=== PATIENT | female | born 1995 | race American Indian/Alaskan Native ===

== ENCOUNTER 2019-03-04 20:58 | Emergency (ER) | payer SELFPAY ==
[2019-03-04 21:10] VITALS: BP 157/101
[2019-03-04 22:52] LABS: Basophils # (Auto) 0.1 K/mm3 (0.0-0.1); Basophils % (Auto) 0.4 % (0.0-1.8); Hematocrit 48.1 % (30.3-42.9); Hemoglobin 16.6 gm/dl (10.1-14.3); Lymphocytes # (Auto) 2.4 K/mm3 (1.2-5.4); Lymphocytes % (Auto) 15.5 % (13.4-35.0); Mean Corpuscular HGB Conc 35 % (30-34); Mean Corpuscular Volume 97 fl (79-97); Monocytes # (Auto) 0.9 K/mm3 (0.0-0.8); Monocytes % (Auto) 6.2 % (0.0-7.3); Platelet Count 353 K/mm3 (140-440); Red Blood Count 4.96 M/mm3 (3.65-5.03); Red Cell Distribution Width 12.9 % (13.2-15.2)
[2019-03-04 22:53] LABS: Alanine Aminotransferase 21 units/L (7-56); Albumin 5.3 g/dL (3.9-5); BUN/Creatinine Ratio 16; Blood Urea Nitrogen 13 mg/dL (7-17); Calcium 10.3 mg/dL (8.4-10.2); Hemolysis Index 5
[2019-03-04] MEDS ORDERED: KETOROLAC 30 MG/1 ML INJ IV ONE (22:59)
[2019-03-04] MEDS ORDERED: ONDANSETRON 4 MG/2 ML INJ IV ONE (22:59)
[2019-03-04] MEDS ORDERED: SODIUM CHLORIDE 0.9% 1000 ML 1,000 ML IV ONE ×2 (22:59→23:03)
[2019-03-04] MEDS ORDERED: MORPHINE 4 MG/1 ML INJ IV ONE (23:02)
[2019-03-04] MEDS ORDERED: D5W/0.9% NACL 1,000 ML IV SCH (23:45)
--- NOTE | 2019-03-04 23:58 | Emergency Department Report ---
ED Abdominal Pain HPI - General Chief Complaint: Abdominal Pain Stated Complaint: ABD PAIN/NAUSEA/EMESIS Time Seen by Provider: 03/04/19 22:57 Source: patient Mode of arrival: Ambulatory Limitations: No Limitations - History of Present Illness Initial Comments: Ms. Preston is a 26 y/o aaf with or GERD , and Gastro pereis, who presents for n/v and abd pain aching burning. 5/10 generalized. pt states hx of frequent exacerbations. pt denies fever or chills, but unable to toerate po intake for past 3 days. State usual tx is zofran and morphine with ivfs,. MD Complaint: abdominal pain -: days(s) Location: LLQ, RLQ Radiation: none Migration to: LLQ, RLQ Severity: moderate Severity scale (0 -10): 7 Quality: aching, burning Consistency: intermittent Improves With: nothing Worsens With: eating Associated Symptoms: nausea, vomiting. denies: chills - Related Data LMP Date: 02/03/19 Previous Rx's Medication Instructions Recorded Last Taken Type Dicyclomine [Bentyl] 10 mg PO QID PRN #30 capsule 03/05/19 Unknown Rx Famotidine [Pepcid] 20 mg PO BID #30 tablet 03/05/19 Unknown Rx Naproxen 500 mg PO BID PRN #30 tablet 03/05/19 Unknown Rx Ondansetron [Zofran Odt] 4 mg PO Q8HR PRN #12 tab.rapdis 03/05/19 Unknown Rx Allergies Allergy/AdvReac Type Severity Reaction Status Date / Time peanut Allergy Anaphylaxis Verified 03/04/19 21:56 ED Review of Systems ROS: Stated complaint: ABD PAIN/NAUSEA/EMESIS Other details as noted in HPI Constitutional: denies: chills, fever Eyes: denies: eye pain, eye discharge, vision change ENT: denies: ear pain, throat pain Respiratory: denies: cough, shortness of breath, wheezing Cardiovascular: denies: chest pain, palpitations Endocrine: no symptoms reported Gastrointestinal: abdominal pain, nausea, vomiting. denies: diarrhea, constipation, melena Genitourinary: denies: urgency, dysuria, discharge Musculoskeletal: denies: back pain, joint swelling, arthralgia Skin: denies: rash, lesions Neurological: denies: headache, weakness, paresthesias Psychiatric: denies: anxiety, depression Hematological/Lymphatic: denies: easy bleeding, easy bruising ED Past Medical Hx - Past Medical History Previous Medical History?: No - Surgical History Past Surgical History?: No - Social History Smoking Status: Never Smoker Substance Use Type: Marijuana - Medications Home Medications: Home Medications Medication Instructions Recorded Confirmed Last Taken Type Dicyclomine [Bentyl] 10 mg PO QID PRN #30 capsule 03/05/19 Unknown Rx Famotidine [Pepcid] 20 mg PO BID #30 tablet 03/05/19 Unknown Rx Naproxen 500 mg PO BID PRN #30 tablet 03/05/19 Unknown Rx Ondansetron [Zofran Odt] 4 mg PO Q8HR PRN #12 tab.rapdis 03/05/19 Unknown Rx ED Physical Exam - General Limitations: No Limitations General appearance: alert, in no apparent distress - Head Head exam: Present: atraumatic, normocephalic - Eye Eye exam: Present: normal appearance, PERRL, EOMI Pupils: Present: normal accommodation - ENT ENT exam: Present: normal orophraynx, mucous membranes moist - Neck Neck exam: Present: normal inspection, full ROM. Absent: tenderness - Respiratory Respiratory exam: Present: normal lung sounds bilaterally. Absent: respiratory distress, wheezes, stridor, chest wall tenderness - Cardiovascular Cardiovascular Exam: Present: regular rate, normal rhythm, normal heart sounds. Absent: systolic murmur, diastolic murmur, rubs, gallop - GI/Abdominal GI/Abdominal exam: Present: soft, normal bowel sounds. Absent: distended, tend erness, guarding, rebound, rigid, bruit, hernia - Rectal Rectal exam: Present: deferred - Extremities Exam Extremities exam: Present: normal inspection, full ROM, normal capillary refill. Absent: tenderness - Back Exam Back exam: Present: normal inspection, full ROM. Absent: tenderness, CVA tenderness (R), CVA tenderness (L), muscle spasm, vertebral tenderness, rash noted - Neurological Exam Neurological exam: Present: alert, oriented X3, CN II-XII intact, normal gait - Psychiatric Psychiatric exam: Present: normal affect, normal mood - Skin Skin exam: Present: warm, dry, intact, normal color. Absent: rash ED Course Vital Signs 03/04/19 03/04/19 21:09 23:21 Temperature 98.2 F Pulse Rate 104 H Respiratory 20 18 Rate Blood Pressure 157/101 O2 Sat by Pulse 98 Oximetry ED Medical Decision Making - Lab Data Result diagrams: 03/04/19 22:20 03/04/19 22:20 Labs 03/04/19 03/04/19 03/04/19 22:20 22:20 22:20 WBC 15.2 H RBC 4.96 Hgb 16.6 H Hct 48.1 H MCV 97 MCH 33 H MCHC 35 H RDW 12.9 L Plt Count 353 Lymph % (Auto) 15.5 [place] % (Auto) 6.2 Eos % (Auto) 0.0 Baso % (Auto) 0.4 Lymph # 2.4 [place] # 0.9 H Eos # 0.0 Baso # 0.1 Seg Neutrophils % 77.9 H Seg Neutrophils # 11.8 H Sodium 137 Potassium 3.2 L Chloride 98.3 Carbon Dioxide 20 L Anion Gap 22 BUN 13 Creatinine 0.8 Estimated GFR > 60 BUN/Creatinine Ratio 16 Glucose 130 H Calcium 10.3 H Total Bilirubin 0.90 AST 33 ALT 21 Alkaline Phosphatase 80 Total Protein 9.3 H Albumin 5.3 H Albumin/Globulin Ratio 1.3 Lipase 14 HCG, Qual Negative - Medical Decision Making pt now refuses ua or CT scan stating "I know what is wrong with me this is a chronic problem. [place] [facility] Checked will not rx narcotics, states all symptoms are resolve, pt eat entire evening meal and liquids without n/v, labs support , n/v, dehydration. pt vital signs improved there is no pain, plan: sin out ama. pt is currently a/o x 3 ambulatory with steady gait and demonstrates sound decision making capacity. to home, follow up with GI, rx: bentyl, zofran, Naproxen, follow up with [facility] in 1-2 days, Critical care attestation.: If time is entered above; I have spent that time in minutes in the direct care of this critically ill patient, excluding procedure time. ED Disposition Clinical Impression: Mild dehydration Nausea and vomiting Qualifiers: Vomiting type: unspecified Vomiting Intractability: non-intractable Qualified Code(s): R11.2 - Nausea with vomiting, unspecified Disposition: LEFT AGAINST MED ADVICE Is pt being admited?: No Does the pt Need Aspirin: No Condition: Undetermined Instructions: Abdominal Pain (ED), Acute Nausea and Vomiting (ED), Dehydration (ED) Prescriptions: Dicyclomine [Bentyl] 10 mg PO QID PRN #30 capsule PRN Reason: abdominal spasm Naproxen 500 mg PO BID PRN #30 tablet PRN Reason: pain Famotidine [Pepcid] 20 mg PO BID #30 tablet Ondansetron [Zofran Odt] 4 mg PO Q8HR PRN #12 tab.rapdis PRN Reason: Nausea And Vomiting Referrals: [facility] [Provider Group] - 2-3 Days Forms: AMA Form Time of Disposition: 01:11
== END 2019-03-05 01:15 | disposition left against medical advice (07) ==
LOC: ED 20:58
DX: E86.0 Dehydration (principal); R10.32 Left lower quadrant pain; R10.31 Right lower quadrant pain; F12.10 Cannabis abuse, uncomplicated; Z91.010 Allergy to peanuts
CPT/HCPCS: 36415; 80053; 83690; 84703; 85025; 96361; 96374; 96375; 99283; J2270; J2405; J7030

== ENCOUNTER 2020-01-09 12:44 | Emergency (ER) | payer SELFPAY ==
[2020-01-09 12:53] VITALS: BP 179/107
[2020-01-09 13:30] LABS: Basophils # (Auto) 0.1 K/mm3 (0.0-0.1); Basophils % (Auto) 0.4 % (0.0-1.8); Hematocrit 44.8 % (30.3-42.9); Hemoglobin 14.9 gm/dl (10.1-14.3); Lymphocytes # (Auto) 1.1 K/mm3 (1.2-5.4); Lymphocytes % (Auto) 8.3 % (13.4-35.0); Mean Corpuscular HGB Conc 33 % (30-34); Mean Corpuscular Volume 97 fl (79-97); Monocytes # (Auto) 0.4 K/mm3 (0.0-0.8); Monocytes % (Auto) 2.7 % (0.0-7.3); Platelet Count 316 K/mm3 (140-440); Red Blood Count 4.64 M/mm3 (3.65-5.03); Red Cell Distribution Width 13.3 % (13.2-15.2)
[2020-01-09 13:47] LABS: Alanine Aminotransferase 22 units/L (7-56); Albumin 4.9 g/dL (3.9-5); Blood Urea Nitrogen 7 mg/dL (7-17); Calcium 9.9 mg/dL (8.4-10.2); Hemolysis Index 15
[2020-01-09 13:48] LABS: BUN/Creatinine Ratio 12
== END 2020-01-09 15:13 | disposition left against medical advice (07) ==
LOC: ED 12:44
DX: R14.1 Gas pain (principal); Z53.21 Procedure and treatment not carried out due to patient leaving prior to being seen by health care provider
CPT/HCPCS: 36415; 80053; 83690; 84703; 85025